=== PATIENT | female | born 1980 | race Caucasian/White ===

== ENCOUNTER 2017-05-26 10:49 | Outpatient (CLI) | payer OTHER | END 2017-05-26 11:07 | disposition home or self-care (01) | LOC: RAD 10:49 | DX: J98.4 Other disorders of lung (principal) ==

== ENCOUNTER 2018-07-12 14:03 | Outpatient (CLI) | payer OTHER | END 2018-07-12 15:54 | disposition home or self-care (01) | LOC: RAD 14:03 | DX: R07.89 Other chest pain (principal) ==

== ENCOUNTER 2019-01-25 07:54 | Outpatient (CLI) | payer OTHER | END 2019-01-25 08:11 | disposition home or self-care (01) | LOC: LAB 07:54 | DX: D64.89 Other specified anemias (principal); E11.9 Type 2 diabetes mellitus without complications; E78.49 Other hyperlipidemia; K76.89 Other specified diseases of liver; E03.8 Other specified hypothyroidism; E55.9 Vitamin D deficiency, unspecified; R29.898 Other symptoms and signs involving the musculoskeletal system ==

== ENCOUNTER → 2019-06-14 | Outpatient (CLI) | payer OTHER | END | disposition home or self-care (01) | LOC: RAD 14:34 | DX: R07.89 Other chest pain (principal) ==

== ENCOUNTER 2020-02-04 08:00 | Outpatient (CLI) | payer OTHER | END 2020-02-04 15:00 | disposition home or self-care (01) | LOC: PPH VACUNA 08:00 | DX: Z23 Encounter for immunization (principal) ==

== ENCOUNTER 2020-05-05 12:13 | Outpatient (CLI) | payer OTHER | END 2020-05-05 15:00 | disposition home or self-care (01) | LOC: PPH VACUNA 12:13 | DX: Z23 Encounter for immunization (principal) ==

== ENCOUNTER 2020-05-13 12:38 | Outpatient (CLI) | payer OTHER | END 2020-05-13 12:54 | disposition home or self-care (01) | LOC: RAD 12:38 | PROVIDERS: ATTEND Pathology Anatomic Pathology & Clinical Pathology | DX: Z11.1 Encounter for screening for respiratory tuberculosis (principal) ==

== ENCOUNTER 2021-01-05 08:42 | Outpatient (CLI) | payer OTHER | END 2021-01-05 08:49 | disposition home or self-care (01) | LOC: LAB 08:42 | PROVIDERS: ATTEND Internal Medicine Sports Medicine | DX: E03.8 Other specified hypothyroidism (principal); D64.89 Other specified anemias; D11.9 Benign neoplasm of major salivary gland, unspecified; E78.2 Mixed hyperlipidemia; I10 Essential (primary) hypertension ==

== ENCOUNTER 2021-01-25 09:27 | Outpatient (CLI) | payer OTHER | END 2021-01-25 09:42 | disposition home or self-care (01) | LOC: LAB 09:27 | PROVIDERS: ATTEND Internal Medicine Sports Medicine | DX: D64.89 Other specified anemias (principal); I10 Essential (primary) hypertension; E11.9 Type 2 diabetes mellitus without complications; E78.2 Mixed hyperlipidemia; E03.8 Other specified hypothyroidism ==

== ENCOUNTER 2021-02-05 07:48 | Outpatient (CLI) | payer OTHER | END 2021-02-05 07:58 | disposition home or self-care (01) | LOC: SONOGRAMA 07:48 | PROVIDERS: ATTEND Internal Medicine Sports Medicine | DX: R10.84 Generalized abdominal pain (principal); R74.01 Elevation of levels of liver transaminase levels ==

== ENCOUNTER → 2021-02-08 07:39 | Outpatient (CLI) | payer OTHER | END | disposition home or self-care (01) | LOC: LAB 07:39 | PROVIDERS: ATTEND Internal Medicine Hematology & Oncology | DX: D50.8 Other iron deficiency anemias (principal); I10 Essential (primary) hypertension; D55.0 Anemia due to glucose-6-phosphate dehydrogenase [G6PD] deficiency ==

== ENCOUNTER 2021-02-15 08:00 | Outpatient (CLI) | payer OTHER | END 2021-02-15 08:30 | disposition home or self-care (01) | LOC: PPH VACUNA 08:00 | PROVIDERS: ATTEND Emergency Medicine Pediatric Emergency Medicine | DX: Z23 Encounter for immunization (principal) ==

== ENCOUNTER 2021-04-28 14:55 | Outpatient (CLI) | payer OTHER | END 2021-04-28 15:04 | disposition home or self-care (01) | LOC: RAD 14:55 | DX: I10 Essential (primary) hypertension (principal) ==

== ENCOUNTER 2021-06-08 09:14 | Outpatient (CLI) | payer OTHER | END 2021-06-08 09:22 | disposition home or self-care (01) | LOC: MAMO-SONO 09:14 | PROVIDERS: ATTEND Internal Medicine Hematology & Oncology | DX: N63.15 Unspecified lump in the right breast, overlapping quadrants (principal); Z12.31 Encounter for screening mammogram for malignant neoplasm of breast; D50.0 Iron deficiency anemia secondary to blood loss (chronic); I10 Essential (primary) hypertension; E03.8 Other specified hypothyroidism; E04.2 Nontoxic multinodular goiter ==

== ENCOUNTER 2021-07-07 07:59 | Outpatient (CLI) | payer OTHER | END 2021-07-07 08:00 | disposition home or self-care (01) | LOC: LAB 07:59 | PROVIDERS: ATTEND Internal Medicine Hematology & Oncology | DX: D50.8 Other iron deficiency anemias (principal); R79.9 Abnormal finding of blood chemistry, unspecified; D51.0 Vitamin B12 deficiency anemia due to intrinsic factor deficiency; D51.1 Vitamin B12 deficiency anemia due to selective vitamin B12 malabsorption with proteinuria; D50.0 Iron deficiency anemia secondary to blood loss (chronic); I10 Essential (primary) hypertension; E03.8 Other specified hypothyroidism; R74.02 Elevation of levels of lactic acid dehydrogenase [LDH]; K74.02 Hepatic fibrosis, advanced fibrosis; K76.89 Other specified diseases of liver; C56.9 Malignant neoplasm of unspecified ovary; R97.8 Other abnormal tumor markers; R97.1 Elevated cancer antigen 125 [CA 125]; R97.0 Elevated carcinoembryonic antigen [CEA]; B20 Human immunodeficiency virus [HIV] disease; B17.9 Acute viral hepatitis, unspecified; Z11.59 Encounter for screening for other viral diseases ==

== ENCOUNTER 2021-07-07 08:10 | Outpatient (CLI) | payer OTHER | END 2021-07-07 08:42 | disposition home or self-care (01) | LOC: SONOGRAMA 08:10 | PROVIDERS: ATTEND Internal Medicine Hematology & Oncology | DX: R74.8 Abnormal levels of other serum enzymes (principal); D51.1 Vitamin B12 deficiency anemia due to selective vitamin B12 malabsorption with proteinuria; D50.0 Iron deficiency anemia secondary to blood loss (chronic); I10 Essential (primary) hypertension; E03.8 Other specified hypothyroidism; D51.0 Vitamin B12 deficiency anemia due to intrinsic factor deficiency ==